=== PATIENT | female | born 1990 | race African-American/Black ===

== ENCOUNTER 2021-09-23 12:52 | Emergency (ER) | payer MEDICAID ==
[~2021-09-23] VITALS: Ht 157.5 cm; Wt 108.0 kg
[2021-09-23 13:02] VITALS: BP 138/83
== END 2021-09-23 17:14 | disposition left against medical advice (07) ==
LOC: ER 12:52
DX: Z53.21 Procedure and treatment not carried out due to patient leaving prior to being seen by health care provider (principal); Z90.49 Acquired absence of other specified parts of digestive tract; Z98.51 Tubal ligation status